=== PATIENT | female | born 1955 | race Caucasian/White ===

== ENCOUNTER 2018-09-09 11:22 | Emergency (ER) | payer BC ==
[2018-09-09 11:55] VITALS: BP 135/83
--- NOTE | 2018-09-09 11:58 | UC ---
Respiratory Complaint HPI - HPI Summary HPI Summary: 62 yo female presents with cold symptoms. She tells me that for the past 2 days she has had body aches, sinus congestion, and dry cough. She has not been taking anything OTC for her symptoms. She mentions that her co-workers have been sick with similar symptoms. She denies fever, sore throat, SOB, chest pain , rash. - History of Current Complaint Chief Complaint: UCRespiratory Stated Complaint: FLU LIKE SYMP Time Seen by Provider: 09/09/18 11:57 Hx Obtained From: Patient Onset/Duration: Gradual Onset Severity Initially: Moderate Severity Currently: Moderate Pain Intensity: 7 Pain Scale Used: 0-10 Numeric Character: Cough: Nonproductive - Allergies/Home Medications Allergies/Adverse Reactions: Allergies Allergy/AdvReac Type Severity Reaction Status Date / Time amoxicillin Allergy Hives Verified 09/09/18 11:55 Home Medications: Home Medications Diltiazem TAB* [Cardizem 30 MG Tab*] 30 mg PO BID 09/09/18 [History Confirmed ] Trazodone HCl 50 mg PO 09/09/18 [History] PMH/Surg Hx/FS Hx/Imm Hx Cardiovascular History: Hypertension - Surgical History Surgical History: Yes Surgery Procedure, Year, and Place: L LUMPECTOMY, 2007, [facility] - Family History Known Family History: Positive: Hypertension - Social History Occupation: Employed Full-time Lives: With Family Alcohol Use: Daily Substance Use Type: None Smoking Status (MU): Former Smoker Type: Cigarettes Have You Smoked in the Last Year: No When Did the Patient Quit Smoking/Using Tobacco: 20 YEARS AGO - Immunization History Most Recent Influenza Vaccination: none Most Recent Tetanus Shot: unknown Most Recent Pneumonia Vaccination: none Review of Systems All Other Systems Reviewed And Are Negative: Yes Constitutional: Positive: Fatigue, Other - Body aches Skin: Positive: Negative Eyes: Positive: Negative ENT: Positive: Nasal Discharge, Sinus Congestion Respiratory: Positive: Cough Cardiovascular: Positive: Negative Gastrointestinal: Positive: Negative Neurovascular: Positive: Negative Neurological: Positive: Negative Psychological: Positive: Negative Physical Exam - Summary Physical Exam Summary: GENERAL: NAD. WDWN. No pain distress. SKIN: No rashes, sores, lesions, or open wounds. HEENT: Head: AT/NC Eyes: EOM intact. Conjunctiva clear without inflammation or discharge. Ears: Hearing grossly normal. TMs intact, no bulging, erythema, or edema. Nose: Nasal mucosa pink and moist. NTTP maxillary and frontal sinus. Throat: Posterior oropharynx without exudates, erythema, or tonsillar enlargement. Uvula midline. NECK: Supple. Nontender. No lymphadenopathy. CHEST: CTAB. No r/r/w. No accessory muscle use. Breathing comfortably and in no distress. CV: RRR. Without m/r/g. Pulses intact. Cap refill <2seconds NEURO: Alert. PSYCH: Age appropriate behavior. Triage Information Reviewed: Yes Vital Signs: Initial Vital Signs Temp 98.4 F 09/09/18 11:51 Pulse 74 09/09/18 11:51 Resp 18 09/09/18 11:51 BP 135/83 09/09/18 11:51 Pulse Ox 98 09/09/18 11:51 Vital Signs Reviewed: Yes Respiratory Course/Dx - Course Course Of Treatment: Discussed viral vs bacterial causes with the pt. Recommended OTC conservative management as I suspect her symptoms are viral. She prefers to be on antibiotics at this time. - Differential Dx/Diagnosis Provider Diagnosis: Rhinosinusitis Discharge - Sign-Out/Discharge Documenting (check all that apply): Patient Departure All imaging exams completed and their final reports reviewed: No Studies - Discharge Plan Condition: Stable Disposition: HOME Prescriptions: Azithromycin TAB* [Zithromax TAB (Z-ROSETTE) 250 mg #6 tabs] 2 tab PO .TODAY, THEN 1 DAILY #1 rosette Patient Education Materials: Viral Syndrome (ED) Referrals: Chi Martinez MD [Primary Care Provider] - Additional Instructions: If you develop a fever, shortness of breath, chest pain, new or worsening symptoms - please call your PCP or go to the ED immediately. Your blood pressure was slightly elevated at todays visit. Please see your primary provider within 4 weeks for recheck and re-evaluation. Please try taking an [id number] mucinex in addition to the antibiotic for relief - Billing Disposition and Condition Condition: STABLE Disposition: Home
== END 2018-09-09 12:08 | disposition home or self-care (01) ==
LOC: UCEAST 11:22
DX: J32.9 Chronic sinusitis, unspecified (principal); Z88.0 Allergy status to penicillin; I10 Essential (primary) hypertension; Z87.891 Personal history of nicotine dependence
CPT/HCPCS: 99212; G0463

== ENCOUNTER 2023-06-17 06:22 | Inpatient (IN) ==
[2023-06-17 06:49] LABS: ABS Eosinophils 0.2 10^3/uL (0.0-0.5); ABS Lymphocytes 2.1 10^3/uL (1.0-4.8); ABS Monocytes 0.5 10^3/uL (0.0-0.9); ABS Neutrophils 1.7 10^3/uL (1.5-7.6); Eosinophil % 4.9 %; Hematocrit 39.1 % (35-45); Hemoglobin 12.9 g/dL (11.5-14.3); Lymphocyte % 46.5 %; Mean Corpuscular Hemoglobin 29.1 pg (27-33); Mean Corpuscular Hgb Conc 33.1 g/dL (31-36); Mean Platelet Volume 9.2 fL (7.5-11.2); Platelet Count 201 10^3/uL (150-450); Red Blood Count 4.44 10^6/uL (3.63-4.92); Red Cell Distribution Width 14.4 % (12-17); White Blood Count 4.6 10^3/uL (3.8-11.8)
[2023-06-17 06:57] LABS: Activated Partial Thrombo Time 31.1 seconds (26.0-38.0); INR 0.99 (0.83-1.13)
[2023-06-17] MEDS: Iodixanol (CONTRAST) 320 MG/ML 100 ML SDV IV ONE (07:06)
[2023-06-17 07:17] LABS: ALT 16 U/L (7-52); AST 18 U/L (13-39); Albumin 4.4 g/dL (3.2-5.2); Albumin/Globulin Ratio 1.8 (1-3); Alkaline Phosphatase 54 U/L (35-149); Anion Gap 7 mmol/L (2-16); Blood Urea Nitrogen 20 mg/dL (6-24); CO2 Carbon Dioxide 30 mmol/L (22-32); Calcium 9.3 mg/dL (8.6-10.3); Chloride 103 mmol/L (101-111); Cholesterol 197 mg/dL; Creatinine, Serum 1.11 mg/dL (0.51-0.95); Globulin 2.4 g/dL (2-4); Glucose 100 mg/dL (70-100); HDL Cholesterol 77.6 mg/dL; High Sens Troponin Baseline < 3 pg/mL (<15); LDL Cholesterol 108 mg/dL; Potassium 4.3 mmol/L (3.5-5.0); Sodium 140 mmol/L (135-145); Total Bilirubin 0.3 mg/dL (0.2-1.0); Total Protein 6.8 g/dL (6.4-8.9); Triglycerides 59 mg/dL; eGFR CKD-EPI 53.8 (>60)
[2023-06-17] MEDS ORDERED: Labetalol IV 5 MG/ML 20 ml VIAL ONE (07:24)
[2023-06-17] MEDS: Labetalol IV 5 MG/ML 20 ml VIAL IV PUSH ONE (07:27)
[2023-06-17] MEDS ORDERED: niCARdipine 0.1MG/ML IVPREMIX 20 MG/200 ML BAG IV ONE (07:33)
[2023-06-17] MEDS: niCARdipine 0.1MG/ML IVPREMIX 20 MG/200 ML BAG IV SCH (07:38)
[2023-06-17] MEDS: TENECTEPLASE 50 MG VIAL KIT 5 MG/ML (reconstituted) IV ONE (07:47)
[2023-06-17 08:33] LABS: High Sensitivity Troponin 1 Hr 3 pg/mL (<15)
[2023-06-17 08:53] LABS: Urine Appearance Clear; Urine Bilirubin Negative (Negative); Urine Blood Negative (Negative); Urine Color Colorless; Urine Glucose Negative (Negative); Urine Ketones Negative (Negative); Urine Nitrite Negative (Negative); Urine Protein Negative (Negative); Urine Specific Gravity 1.031 (1.002-1.030); Urine Urobilinogen Negative (Negative); Urine pH 7.5 (5.0-8.0)
[2023-06-17 15:22] LABS: Folate 8.51 ng/mL (5.90-24.80)
[2023-06-17 15:23] LABS: Vitamin B12 351 pg/mL (180-914)
[2023-06-17] MEDS ORDERED: Metoprolol Tartrate 5 mg VIAL 5 ml VIAL (1 mg/ml) IV PRN (16:10)
[2023-06-17 17:16] LABS: TSH Ultra Thyroid Stim Horm 7.06 mcIU/mL (0.34-5.60)
[2023-06-18 04:07] LABS: ABS Eosinophils 0.2 10^3/uL (0.0-0.5); ABS Lymphocytes 1.5 10^3/uL (1.0-4.8); ABS Monocytes 0.4 10^3/uL (0.0-0.9); ABS Neutrophils 1.7 10^3/uL (1.5-7.6); ABS Nucleated RBC 0.01 10^3/ul; Eosinophil % 4.4 %; Hematocrit 36.1 % (35-45); Hemoglobin 11.9 g/dL (11.5-14.3); Lymphocyte % 38.9 %; Mean Corpuscular Hemoglobin 29.2 pg (27-33); Mean Corpuscular Hgb Conc 33.1 g/dL (31-36); Mean Corpuscular Volume 88.1 fL (80-97); Mean Platelet Volume 9.1 fL (7.5-11.2); Nucleated Red Blood Cells % 0.2 %/100WBC (0.0-0.8); Platelet Count 194 10^3/uL (150-450); Red Blood Count 4.09 10^6/uL (3.63-4.92); Red Cell Distribution Width 14.3 % (12-17); White Blood Count 3.8 10^3/uL (3.8-11.8)
[2023-06-18 04:08] LABS: INR 1.09 (0.83-1.13)
[2023-06-18 04:50] LABS: Albumin/Globulin Ratio 1.9 (1-3); Calcium 8.9 mg/dL (8.6-10.3); Creatinine, Serum 0.92 mg/dL (0.51-0.95); Globulin 2.1 g/dL (2-4); Magnesium 2.1 mg/dL (1.9-2.7); Potassium 4.1 mmol/L (3.5-5.0); Total Bilirubin 0.5 mg/dL (0.2-1.0); Total Protein 6.1 g/dL (6.4-8.9); eGFR CKD-EPI 67.4 (>60)
[2023-06-18] MEDS: Aspirin EC 81 mg TAB.EC (enteric coated) PO SCH (11:34)
[2023-06-19 06:27] LABS: ABS Eosinophils 0.2 10^3/uL (0.0-0.5); ABS Lymphocytes 1.5 10^3/uL (1.0-4.8); ABS Monocytes 0.4 10^3/uL (0.0-0.9); ABS Neutrophils 1.7 10^3/uL (1.5-7.6); Eosinophil % 5.7 %; Hematocrit 37.3 % (35-45); Hemoglobin 12.2 g/dL (11.5-14.3); Lymphocyte % 38.8 %; Mean Corpuscular Hemoglobin 28.9 pg (27-33); Mean Corpuscular Hgb Conc 32.8 g/dL (31-36); Mean Platelet Volume 9.5 fL (7.5-11.2); Platelet Count 197 10^3/uL (150-450); Red Blood Count 4.24 10^6/uL (3.63-4.92); Red Cell Distribution Width 14.4 % (12-17); White Blood Count 3.9 10^3/uL (3.8-11.8)
[2023-06-19 06:43] LABS: Calcium 8.9 mg/dL (8.6-10.3); Creatinine, Serum 0.93 mg/dL (0.51-0.95); Potassium 4.1 mmol/L (3.5-5.0); eGFR CKD-EPI 66.5 (>60)
[2023-06-19 14:08] VITALS: BP 149/85
== END 2023-06-19 14:25 | disposition home or self-care (01) | DRG 62 ==
LOC: ED 06:22 → EDHOLD 06:22 → OBSVTOIN 08:29 → SUATTDRO 08:29 → ICU 09:15 → MEDTELE 09:52
PROVIDERS: ADMIT Internal Medicine Critical Care Medicine; ATTEND Internal Medicine